=== PATIENT | male | born 1965 | race Caucasian/White ===

== ENCOUNTER 2017-03-18 11:16 | Emergency (ER) | payer BC ==
[~2017-03-18] VITALS: Ht 172.7 cm; Wt 83.9 kg
[~2017-03-18 11:16] MED LIST: ASPIRIN EC325 M1 PO; DIPHEN25 M1 PO; NORCO 5-325 TA1 EACH PO; PROZAC40 MG PO; RESTORIL15 MG PO
[2017-03-18 14:08] VITALS: BP 132/68
== END 2017-03-18 14:08 | disposition home or self-care (01) ==
LOC: ER 11:16
DX: M79.89 Other specified soft tissue disorders (principal); F17.210 Nicotine dependence, cigarettes, uncomplicated; F12.10 Cannabis abuse, uncomplicated; Z88.8 Allergy status to other drugs, medicaments and biological substances